=== PATIENT | female | born 1955 | race Caucasian/White ===

== ENCOUNTER 2020-12-12 14:30 | Outpatient (CLI) | payer MEDICARE ==
[2016-07-24 12:25] VITALS: BMI 44.4
[~2020-12-12 14:30] MED LIST: AUGMENTIN 875-11 TAB PO; BETAPACE 120 M120 MG PO; BUMEX2 MG PO; CARDIZEM CD180 MG PO; COUMADIN5 MG PO; KEFLEX500 MG PO; LIDOCAINE 2 %100 ML PO; MEDROL DOSE PACK4 MG PO; PRAVASTATIN SOD10 MG PO; ROBITUSSIN AC (10 M1 PO; ROPINIROLE HCL2 MG PO; SANTYL30 GM TP; ZESTRIL40 MG PO; ZOVIRAX200 MG PO
== END 2020-12-12 23:59 | disposition home or self-care (01) ==
LOC: D.MAMMO 14:30
PROVIDERS: ATTEND Family Medicine
DX: Z12.31 Encounter for screening mammogram for malignant neoplasm of breast (principal)

== ENCOUNTER 2020-12-27 13:30 | Outpatient (CLI) | payer MEDICARE ==
[2016-07-24 12:25] VITALS: BMI 44.4
== END 2020-12-27 14:00 | disposition home or self-care (01) ==
LOC: D.MAMMO 13:30
PROVIDERS: ATTEND Family Medicine
DX: R92.8 Other abnormal and inconclusive findings on diagnostic imaging of breast (principal)